=== PATIENT | female | born 1960 | race Caucasian/White ===

== ENCOUNTER 2023-10-21 14:12 | Emergency (ER) | payer BC, SELFPAY ==
[2023-10-21 14:28] VITALS: BP 130/78
--- NOTE | 2023-10-21 15:44 | ED.GENMED ---
History of Present Illness
General
Chief Complaint: Weakness
Source: patient
Time Seen by Provider: 10/21/23 15:35
Travel History
Have you had any contact with someone who has COVID-19?: No
Do you have any symptoms of coronavirus? Fever > 100 degrees, chills, cough, shortness of breath, sore throat, loss of taste or smell, muscle aches, or headache?: No
History of Present Illness
History of Present Illness:
63-year-old female with past medical history of hyperlipidemia and factor V presenting to the emergency department for evaluation of extreme fatigue upon awakening this morning accompanied with frontal headache, intermittent left lower abdominal
pain (none currently) and generalized weakness. Patient did not take anything for symptoms prior to arrival. She states she did not eat or drink as much as usual today. She denies any fevers although does note she has felt chills throughout the
day. No known sick contacts, recent travel or recent antibiotics. No other present concerns. Of note, patient was started on an injectable medication about 1 month ago for weight loss. Patient unsure if this is related as she states she has else
okay since starting the medication
Past History
Past History
ED Past Medical History: Other (dvt) and Other (factor V Leiden)
ED Past Surgical History: and Other (Sinus, gastric by pass,)
Social History
Tobacco: Non-smoker
Alcohol: Occasional
Drug: None
Personal:
Living: with family
Review of Systems
Review of Systems
All Other Systems: ROS reviewed and negative except as documented in HPI and ROS
Phy Exam
Physical Exam
Physical Exam:
GENERAL: Alert , in no apparent distress but does appear fatigued
EYE: clear conjunctiva b/l
HEAD: NCAT
ENT: o/p clr, mmm.
CARDIAC: Regular rate and rhythm, no murmur .
LUNGS: Clear breath sounds bilaterally, no acute respiratory distress, no wheezes/rales/rhonchi
ABDOMEN: Soft, without focal tenderness, no r/g, no cvat
NEUROLOGICAL: Alert and oriented
SKIN: Warm and dry, skin intact.
MUSCULOSKELETAL: well perfused.
PSYCH: Normal and appropriate interaction.
Scores
Heart Failure Risk
Heart Failure Risk Score: Not Applicable
Heart Score for Chest Pain Patients
STEMI patient?: Not applicable
Withdrawal Assessment of Alcohol
Withdrawal Assessment Completed?: Not applicable
Course
Orders/Labs/Results
Orders:
Orders
10/21/23 15:43
0.9% Sodium Chloride 1000 ml [Nss] 1,000 ml IV BOLUS
Acetaminophen [Tylenol] 1,000 mg PO NOW STA
10/21/23 15:44
Electrocardiogram (*1) Urgent
Reason for Study: Fatigue / Weakness
EKG- Treatment ONCE
10/21/23 15:48
COVID-19 Antigen Urgent
Source: Nasal Swab
Complete Blood Count/With Diff Urgent
Comprehensive Metabolic Panel Urgent
TSH Urgent
Comment: ADD ON
Troponin I Urgent
10/21/23 16:25
Add On- LAB Urgent
Tests Added?: TSH
10/21/23 17:44
Urinalysis Reflex To Culture Urgent
Date Specimen was Collected: 10/21/23
Time Specimen was Collected: 17:42
Urine Microscopic Reflex Cult Urgent
Urine Culture Urgent
HARLEEN Source: U
Specimen Description:
Date Specimen was Collected: 10/21/23
Time Specimen was Collected: 17:42
Abnormal Lab Results
10/21/23 10/21/23
15:48 17:44
WBC 12.2 H 10^3/uL
(4.8-10.8)
MPV 11.0 H fL
(7.4-10.4)
Absolute Neuts (auto) 10.8 H 10^3/uL
(1.4-6.5)
Absolute Lymphs (auto) 0.7 L 10^3/uL
(1.2-3.4)
Neutrophils % 88.4 H %
(42.2-75.2)
Lymphocytes % 6.0 L %
(20.5-51.1)
Glucose 102 H mg/dl
(70-99)
Total Protein 6.2 L g/dl
(6.3-8.2)
Leukocyte Esterase Rfl 1+ A
(Negative)
Urine Bacteria (Reflex) Few A
(Negative)
10/21/23 15:48
10/21/23 15:48
Vital Signs
Initial and Last Documented VS:
Initial Vital Signs
Temp Pulse Resp BP Pulse Ox
98.8 F 77 16 130/78 98
10/21/23 14:28 10/21/23 14:28 10/21/23 14:28 10/21/23 14:28 10/21/23 14:28
Last Documented Vital Signs
Temp Pulse Resp BP Pulse Ox
98.8 F 66 20 100/59 95
10/21/23 14:28 10/21/23 18:30 10/21/23 18:30 10/21/23 18:00 10/21/23 18:30
MDM/Problems Addressed
Differential Diagnosis Includes:
viral syndrome, diverticulitis, atypical ACS presentation, urinary tract infection 6
MDM/Problems Addressed:
63-year-old female presenting the emergency department for evaluation of a multitude of symptoms including fatigue, weakness, intermittent abdominal pain, headache, chills. Symptoms all started today. No known sick contacts. Patient
hemodynamically stable and in no acute distress. She does appear fatigued. Started new medication around 1 month ago so certainly medication interaction is a possibility. Patient did not take anything for her symptoms prior to arrival. She
states presently the headache is bothering her the most. 1 g of p.o. Tylenol ordered for this. Will give fluids. EKG ordered. Reassessment following.
*Pulse Oximetry
Patient hypoxic: no
*Critical Care Note
Total Time (30-74mins, 75-104mins- exclusive of procedures): Not Applicable
Comment
Comment:
5:35 PM: On reassessment patient is sleeping and resting comfortably. Upon awakening she states she is feeling better although still feels mildly fatigued. Labs encouraging although does show a mild leukocytosis which I feel is likely related to a
viral etiology. Awaiting urinalysis. Anticipate discharge home.
Patient Management
Escalation/DeEscalation of care consider admission/obs:
Patient's urinalysis without signs of infection. At this time she feels better and is hemodynamically stable. Aware of return precautions emergency department as well as follow-up recommendations.
ED Attending Note
-
Portions of this chart may have been created with voice recognition software.� Occasional wrong word or��sound alike� substitutions may have occurred due to the inherent limitations of voice recognition software.
Discharge Plan
Departure
Patient Disposition: Home (Routine Discharge)
Date of Disposition: 10/21/23
Time of Disposition: 18:37
Patient with high blood pressure during this ER visit?: No
Discharge Problem:
Fatigue
Instructions: Generalized Weakness (DC)
Prescriptions:
No Action
sulfamethoxazole-trimethoprim [Bactrim DS] 1 EACH tablet
1 ea PO BID
Patient Comments:
started on 01/18 for 10 days
potassium chloride 20 MEQ tablet,ER particles/crystals
40 meq PO DAILY
warfarin [Jantoven] 5 MG tablet
5 mg PO DAILY
fluticasone propionate 1 SPRAY spray,suspension
1 spray intranasal DAILY
VITAMIN E
1 tab PO BID
Vitamin B-12
1 tab PO DAILY
Vitamin B-6
1 tab PO DAILY
Vitamin D
1 tab PO DAILY
Vytorin
1 tab PO DAILY
clindamycin HCl 300 MG capsule
300 mg PO QID Qty: 28 0RF
Lactobacillus rhamnosus GG 1 EACH capsule
1 ea PO BID Qty: 14 0RF
hydrocodone-acetaminophen [Vicodin] 1 EACH tablet
1 ea PO Q6HPRN PRN (Reason: pain) Qty: 7 0RF
Referrals:
Kiana Begum CRNP [Family Provider] -
Interventions
Interventions:
*Risk Screen - Suicide Last Done: 10/21/23 16:07
*General Assessment Last Done: 10/21/23 16:07
*Neglect/Abuse Screening Last Done: 10/21/23 16:07
ED- Fall Risk Assessment Last Done: 10/21/23 15:42
*ED COVID-19 Vaccine History Last Done: 10/21/23 14:28
*Nursing Disposition Last Done: 10/21/23 18:48
ED- Cardiac Assessment Last Done: 10/21/23 15:41
ED- Neurological Assessment Last Done: 10/21/23 15:42
ED- Pulmonary Assessment Last Done: 10/21/23 15:42
Discharge Date and Time
Discharge Date/Time: 10/21/23 18:49
Print Language: SRI LANKAN
[2023-10-21] MEDS: NSS 1000 IV (15:48)
[2023-10-21] MEDS: TYLENOL 1000 MG PO (15:53)
[2023-10-21 15:58] LABS: % Basophils 0.2 % (0-2); % Eosinophils 0.1 % (0-6); % Immature Granulocytes 0.2 % (0-0.5); % Monocytes 5.1 % (1.7-9.3); % Neutrophils 88.4 % (42.2-75.2); Absolute Lymphocytes 0.7 10^3/uL (1.2-3.4); Absolute Monocytes 0.6 10^3/uL (0.1-0.6); Absolute Neutrophils 10.8 10^3/uL (1.4-6.5); Hematocrit 38.4 % (37.0-47.0); Hemoglobin 13.5 g/dL (12.0-16.0); Mean Corp Hgb Conc. 35.2 g/dL (33.0-37.0); Mean Corpuscular Hgb 30.1 pg (27.0-31.0); Mean Corpuscular Volume 85.7 fL (81.0-99.0); Nucleated Red Blood Cells % 0 %; Platelet Count 179 10^3/uL (130-400); Red Blood Cell Count 4.48 10^6/uL (4.20-5.40); Red Cell Dist. Width 14.3 % (11.5-14.5); White Blood Cell Count 12.2 10^3/uL (4.8-10.8)
[2023-10-21 16:21] LABS: Troponin I < 0.012 ng/ml
[2023-10-21 16:23] LABS: ALT (SGPT) 27 U/L (0-35); AST (SGOT) 33 U/L (14-36); Albumin 3.7 g/dl (3.5-5.0); Alkaline Phosphatase 102 U/L (38-126); Blood Urea Nitrogen 14 mg/dl (7-17); Calcium 8.8 mg/dl (8.4-10.2); Carbon Dioxide 25 mmol/L (22-30); Chloride 105 mmol/L (98-107); Glucose 102 mg/dl (70-99); Potassium 3.8 mmol/L (3.5-5.1); Sodium 136 mmol/L (135-145); Total Bilirubin 0.5 mg/dl (0.2-1.3); Total Protein 6.2 g/dl (6.3-8.2); eGFR > 60.00
[2023-10-21 16:24] LABS: COVID-19 Antigen Negative (Negative)
[2023-10-21 17:00] VITALS: BP 123/70
[2023-10-21 17:29] LABS: TSH 1.39 uIU/ml (0.47-4.68)
[2023-10-21 17:56] LABS: Urine Albumin Negative (Neg - Trace); Urine Bilirubin Negative (Negative); Urine Character Clear (Clear); Urine Color Yellow; Urine Glucose Negative (Negative); Urine Ketone Negative (Negative); Urine Leukocyte 1+ (Negative); Urine Nitrite Negative (Negative); Urine Occult Blood Negative (Negative); Urine Urobilinogen Negative (Neg - 1+)
[2023-10-21 18:00] VITALS: BP 100/59
[2023-10-21 18:30] LABS: Urine Bacteria Few (Negative); Urine Red Blood Cell 0-2 /HPF (0-2); Urine Squamous Cell >30 /LPF (Few)
== END 2023-10-21 18:49 | disposition home or self-care (01) ==
LOC: EMR 14:12
PROVIDERS: Physician Assistant Medical; EMERGENCY PHYSICIAN Emergency Medicine; FAMILY PHYSICIAN Nurse Practitioner Family
DX: R53.83 Other fatigue (principal); E78.00 Pure hypercholesterolemia, unspecified; D68.51 Activated protein C resistance; Z86.718 Personal history of other venous thrombosis and embolism
CPT/HCPCS: 99283; 96360; 80053; 81003; 81015; 84443; 84484; 85025; 87086; 87811; 93005

== ENCOUNTER → 2023-12-08 10:33 | Outpatient (REF) | payer BC, SELFPAY | LOC: RAD 10:33 | PROVIDERS: ATTENDING PHYSICIAN Nurse Practitioner Family | DX: R06.09 Other forms of dyspnea (principal); R05.2 Subacute cough | CPT/HCPCS: 71046 ==

== ENCOUNTER → 2024-09-10 12:34 | Outpatient (REF) | payer BC, SELFPAY ==
[2024-09-10 13:15] LABS: % Basophils 0.6 % (0-2); % Eosinophils 1.6 % (0-6); % Immature Granulocytes 0.2 % (0-0.5); % Lymphocytes 34.5 % (20.5-51.1); % Monocytes 5.6 % (1.7-9.3); % Neutrophils 57.5 % (42.2-75.2); Absolute Eosinophils 0.1 10^3/uL (0-0.7); Absolute Lymphocytes 1.7 10^3/uL (1.2-3.4); Absolute Monocytes 0.3 10^3/uL (0.1-0.6); Absolute Neutrophils 2.9 10^3/uL (1.4-6.5); Hemoglobin 14.2 g/dL (12.0-16.0); Mean Corp Hgb Conc. 33.8 g/dL (33.0-37.0); Mean Corpuscular Hgb 30.4 pg (27.0-31.0); Mean Corpuscular Volume 89.9 fL (81.0-99.0); Mean Platelet Volume 10.4 fL (7.4-10.4); Nucleated Red Blood Cells % 0 %; Platelet Count 201 10^3/uL (130-400); Red Blood Cell Count 4.67 10^6/uL (4.20-5.40); Red Cell Dist. Width 13.5 % (11.5-14.5)
[2024-09-10 13:42] LABS: ALT (SGPT) 27 U/L (0-35); AST (SGOT) 27 U/L (14-36); Albumin 4.3 g/dl (3.5-5.0); Alkaline Phosphatase 88 U/L (38-126); Blood Urea Nitrogen 11 mg/dl (7-17); Carbon Dioxide 25 mmol/L (22-30); Chloride 108 mmol/L (98-107); Glucose 82 mg/dl (70-99); HDL Cholesterol 71 mg/dl; INR 2.21; LDL Cholesterol, Calculated 87 mg/dl; PT 24.7 Sec (11.4-14.6); Potassium 3.8 mmol/L (3.5-5.1); Sodium 140 mmol/L (135-145); Total Bilirubin 0.6 mg/dl (0.2-1.3); Total Cholesterol 171 mg/dl (50-199); Total Protein 6.6 g/dl (6.3-8.2); Triglyceride 68 mg/dl (10-149); Very Low Density Lipoprotein 13 mg/dl (0-30); eGFR > 60.00
[2024-09-10 13:59] LABS: Free T4 1.12 ng/dl (0.78-2.19); Vitamin D, 25-OH*** 45.6 ng/mL (30-80)
[2024-09-10 14:13] LABS: TSH 2.08 uIU/ml (0.47-4.68)
[2024-09-10 15:03] LABS: Glycohemoglobin (HgbA1c) 4.9 % (4.0-5.6)
== END ==
LOC: REG 12:34
PROVIDERS: ATTENDING PHYSICIAN Internal Medicine Hematology & Oncology; FAMILY PHYSICIAN Nurse Practitioner Family
DX: J18.9 Pneumonia, unspecified organism (principal); Z00.00 Encounter for general adult medical examination without abnormal findings; D68.51 Activated protein C resistance; E78.2 Mixed hyperlipidemia; I82.461 Acute embolism and thrombosis of right calf muscular vein; Z98.84 Bariatric surgery status; F33.41 Major depressive disorder, recurrent, in partial remission; J45.20 Mild intermittent asthma, uncomplicated; E55.9 Vitamin D deficiency, unspecified; Z79.01 Long term (current) use of anticoagulants; I87.1 Compression of vein; M81.0 Age-related osteoporosis without current pathological fracture; Z87.01 Personal history of pneumonia (recurrent); E66.9 Obesity, unspecified; I82.409 Acute embolism and thrombosis of unspecified deep veins of unspecified lower extremity; D53.1 Other megaloblastic anemias, not elsewhere classified; D50.9 Iron deficiency anemia, unspecified; D51.0 Vitamin B12 deficiency anemia due to intrinsic factor deficiency; Z51.11 Encounter for antineoplastic chemotherapy; J41.0 Simple chronic bronchitis
CPT/HCPCS: 36415; 71046; 80053; 80061; 82306; 83036; 84439; 84443; 85025; 85610

== ENCOUNTER 2024-12-08 10:28 | Emergency (ER) | payer BC, SELFPAY ==
[2024-12-08] VITALS (8 sets, daily range): BP systolic 109–156; BP diastolic 70–83; BMI 32.6
--- NOTE | 2024-12-08 13:06 | ED.GENMED ---
History of Present Illness
<SHER Luo Last Filed: 12/08/24 18:57>
General
Chief Complaint: DVT/Possible Blood Clot
Source: patient
Exam Limitations: none
Time Seen by Provider: 12/08/24 12:50
History of Present Illness
History of Present Illness:
64-year-old female presents complaining of increased pain behind the right knee and now swelling and ecchymosis to the right leg. She is on Coumadin for history of DVT. She has a filter. 1 month ago she developed posterior knee pain. She was in
[place] when this happened she had an ultrasound which demonstrated a Loving's cyst. She was also thought at 1 point to have cellulitis and completed a course of antibiotics. She was then thought she had a poison [place]. She finished
prednisone yesterday however her symptoms persist. No chest pain or shortness of breath. No injury to the leg. She denies numbness or tingling to the foot.
Past History
<SHER Luo Last Filed: 12/08/24 18:57>
Past History
ED Past Medical History: Other (dvt) and Other (factor V Leiden)
ED Past Surgical History: and Other (Sinus, gastric by pass,)
Social History
Tobacco: Non-smoker
Alcohol: Occasional
Drug: None
Personal:
Living: with family
Phy Exam
<SHER Luo Last Filed: 12/08/24 18:57>
Physical Exam
Physical Exam:
General: Well-appearing female no acute respiratory distress
HEENT normocephalic atraumatic
Musculoskeletal exam: The patient is tender over the posterior knee on the right side with tightness noted to the proximal calf. She has full extension of the knee and flexion to about 90 degrees. She has good range of motion to the right ankle
however extreme dorsiflexion of the ankle reproduces pain in the calf.
Vascular: The compartments are soft. The right foot has a 2+ DP pulse
Course
<Josh Valenzuela PA-C - Last Filed: 12/08/24 18:57>
Orders/Labs/Results
Orders:
Orders
12/08/24 10:31
Legs, Right US [US Periph Venous LOWER Ext RT] Urgent
Comment:
Reason For Exam: pain swelling
12/08/24 13:13
Complete Blood Count/With Diff Urgent
Comprehensive Metabolic Panel Urgent
Prothrombin Time Urgent
12/08/24 14:44
CT Angio Lower Ext W/Wo Iv Contrast [CT Lower Ext Angio W/wo Iv Con] Urgent
Comment:
Reason For Exam: right leg pain, swelling, possible hematoma
12/08/24 18:12
Acetaminophen [Tylenol] 1,000 mg .ROUTE .STK-MED ONE
Acetaminophen [Tylenol] 1,000 mg PO NOW STA
Abnormal Lab Results
12/08/24
13:13
RBC 4.00 L 10^6/uL
(4.20-5.40)
Hct 36.9 L %
(37.0-47.0)
MCHC 32.8 L g/dL
(33.0-37.0)
PT 38.9 H Sec
(11.4-14.6)
BUN 18 H mg/dl
(7-17)
12/08/24 13:13
12/08/24 13:13
Vital Signs
Initial and Last Documented VS:
Initial Vital Signs
Temp Pulse Resp BP Pulse Ox
97.6 F 61 16 109/83 100
12/08/24 10:30 12/08/24 10:30 12/08/24 10:30 12/08/24 10:30 12/08/24 10:30
Last Documented Vital Signs
Temp Pulse Resp BP Pulse Ox
97.6 F 61 16 127/71 100
12/08/24 10:30 12/08/24 10:30 12/08/24 10:30 12/08/24 18:00 12/08/24 13:08
<Ben Palacios, DO - Last Filed: 12/08/24 15:40>
Orders/Labs/Results
Orders:
Orders
12/08/24 10:31
Legs, Right US [US Periph Venous LOWER Ext RT] Urgent
Comment:
Reason For Exam: pain swelling
12/08/24 13:13
Complete Blood Count/With Diff Urgent
Comprehensive Metabolic Panel Urgent
Prothrombin Time Urgent
12/08/24 14:44
CT Angio Lower Ext W/Wo Iv Contrast [CT Lower Ext Angio W/wo Iv Con] Urgent
Comment:
Reason For Exam: right leg pain, swelling, possible hematoma
12/08/24 18:12
Acetaminophen [Tylenol] 1,000 mg .ROUTE .STK-MED ONE
Acetaminophen [Tylenol] 1,000 mg PO NOW STA
Abnormal Lab Results
12/08/24
13:13
RBC 4.00 L 10^6/uL
(4.20-5.40)
Hct 36.9 L %
(37.0-47.0)
MCHC 32.8 L g/dL
(33.0-37.0)
PT 38.9 H Sec
(11.4-14.6)
BUN 18 H mg/dl
(7-17)
12/08/24 13:13
12/08/24 13:13
Vital Signs
Initial and Last Documented VS:
Initial Vital Signs
Temp Pulse Resp BP Pulse Ox
97.6 F 61 16 109/83 100
12/08/24 10:30 12/08/24 10:30 12/08/24 10:30 12/08/24 10:30 12/08/24 10:30
Last Documented Vital Signs
Temp Pulse Resp BP Pulse Ox
97.6 F 61 16 127/71 100
12/08/24 10:30 12/08/24 10:30 12/08/24 10:30 12/08/24 18:00 12/08/24 13:08
<Josh Valenzuela PA-C - Last Filed: 12/08/24 18:57>
MDM/Problems Addressed
Differential Diagnosis Includes:
Right leg pain. Consider DVT although unlikely given the anticoagulated state versus Loving's cyst versus ruptured Loving's cyst
Will check INR given the Coumadin. Labs pending. 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
<Josh Valenzuela PA-C - Last Filed: 12/08/24 18:57>
*Pulse Oximetry
SaO2: 100
Oxygen Mode of Delivery: Room air
Patient hypoxic: no
*Critical Care Note
Total Time (30-74mins, 75-104mins- exclusive of procedures): Not Applicable
<SHER Luo Last Filed: 12/08/24 18:57>
Update Note
Update Note:
Ultrasound negative for DVT but discussed findings with emergency room attending as well as vascular surgery. Did order CT angiogram of the leg secondary to elevated INR and significant pain in the calf. Concern was for active bleeding. CT
confirms a Loving's cyst in the popliteal space however there is an intramuscular hematoma over the proximal gastrocnemius. No evidence of active bleeding on CT angiogram. Relayed this information to the patient. Reexamined the patient. She has
good passive dorsiflexion to the ankle beyond 90 degrees. There is some tightness in the proximal calf and this But the compartments are soft otherwise. No initial concern for compartment syndrome. Recommended elevation and warm compresses as
prescribed pain medicine. Advise she follow-up and use a walker
ED Attending Note
<Josh Valenzuela PA-C - Last Filed: 12/08/24 18:57>
-
Portions of this chart may have been created with voice recognition software.� Occasional wrong word or��sound alike� substitutions may have occurred due to the inherent limitations of voice recognition software.
<Ben Palacios, - Last Filed: 12/08/24 15:40>
ED Attending Note
Patient seen and examined by attending physician: Yes
ED Attending Note:
I have reviewed and agree with history and treatment plan by Rahat Valenzuela. My exam revealed right calf tender to palpation, normal pulses distal in all extremities. Will eval with ct of leg.
Discharge Plan
Departure
Patient Disposition: Home (Routine Discharge)
Date of Disposition: 12/08/24
Time of Disposition: 18:53
Patient with high blood pressure during this ER visit?: No
Discharge Problem:
Hematoma
Instructions: Hematoma
Prescriptions:
New
hydrocodone-acetaminophen 5-325 mg tablet
1 tab PO Q8H PRN (Reason: Pain) Qty: 10 0RF
No Action
potassium chloride 20 MEQ tablet,ER particles/crystals
40 meq PO DAILYPRN PRN (Reason: cramps)
furosemide 40 mg tablet
40 mg PO DAILY
Theragen Tablet
1 tab PO DAILY
warfarin 5 mg tablet
5 mg PO SUTUWEFRSA
warfarin 5 mg tablet
7.5 mg PO MOTH
pravastatin 20 mg tablet
20 mg PO DAILY
cyanocobalamin (vitamin B-12) 2,000 mcg Tablet Extended Release
2,000 mcg PO DAILY
pyridoxine (vitamin B6) [Vitamin B-6] 500 mg Tablet
1,000 mg PO DAILY
black cohosh 200 mg Capsule
200 mg PO DAILY
cholecalciferol (vitamin D3) 25 mcg (1,000 unit) Tablet
25 mcg PO DAILY
Trintellix 10 mg tablet
10 mg PO DAILY
fluticasone furoate-vilanterol [Breo Ellipta] 200-25 mcg/dose blister with device
1 ea INHALATION DAILYPRN PRN (Reason: sob)
Referrals:
Kiana Begum CRNP [Family Provider]
Activity Restrictions/Additional Instructions:
Elevate for swelling. Use warm compresses. Continue with pain medicine as needed. Please return here for increasing pain numbness discoloration of the foot or other concerning findings.
Interventions
Interventions:
*Risk Screen - Suicide Last Done: 12/08/24 10:32
*General Assessment Last Done: 12/08/24 11:34
*Neglect/Abuse Screening Last Done: 12/08/24 10:32
*ED- Fall Risk Assessment Last Done: 12/08/24 11:34
*ED COVID-19 Vaccine History Last Done: 12/08/24 11:34
ED- Cardiac Assessment Last Done: 12/08/24 11:37
ED- Pulmonary Assessment Last Done: 12/08/24 11:37
ED-Peripheral Vascular Assessment Last Done: 12/08/24 11:37
ED-Skin Assessment Last Done: 12/08/24 11:37
Discharge Date and Time
Print Language: MALIAN
[2024-12-08 13:34] LABS: Hematocrit 36.9 % (37.0-47.0); Hemoglobin 12.1 g/dL (12.0-16.0); Mean Corp Hgb Conc. 32.8 g/dL (33.0-37.0); Mean Corpuscular Volume 92.3 fL (81.0-99.0); Nucleated Red Blood Cells % 0 %; Platelet Count 216 10^3/uL (130-400); Red Cell Dist. Width 14.4 % (11.5-14.5)
[2024-12-08 13:40] LABS: INR 3.96; PT 38.9 Sec (11.4-14.6)
[2024-12-08 14:02] LABS: ALT (SGPT) 19 U/L (0-35); AST (SGOT) 19 U/L (14-36); Albumin 3.8 g/dl (3.5-5.0); Alkaline Phosphatase 80 U/L (38-126); Blood Urea Nitrogen 18 mg/dl (7-17); Calcium 9.1 mg/dl (8.4-10.2); Carbon Dioxide 30 mmol/L (22-30); Chloride 106 mmol/L (98-107); Estimated Creatinine Clearance 89 ml/min; Glucose 87 mg/dl (70-99); Potassium 3.9 mmol/L (3.5-5.1); Sodium 139 mmol/L (135-145); Total Protein 6.4 g/dl (6.3-8.2); eGFR > 60.00
[2024-12-08] MEDS: TYLENOL 1000 MG PO (18:14)
== END 2024-12-08 19:13 | disposition home or self-care (01) ==
LOC: EMR 10:28
PROVIDERS: Physician Assistant; EMERGENCY PHYSICIAN Emergency Medicine; FAMILY PHYSICIAN Nurse Practitioner Family
DX: S80.11XA Contusion of right lower leg, initial encounter (principal); X58.XXXA Exposure to other specified factors, initial encounter; R22.41 Localized swelling, mass and lump, right lower limb; D68.51 Activated protein C resistance; Z79.01 Long term (current) use of anticoagulants; Z86.718 Personal history of other venous thrombosis and embolism
CPT/HCPCS: 99284; 73706; 80053; 85025; 85610; 93971; Q9967